=== PATIENT | female | born 1970 | race Caucasian/White ===

== ENCOUNTER 2021-10-23 06:50 | Outpatient (CLI) | payer SELFPAY ==
[2021-10-23 08:26] VITALS: PULSE 69; PULSE 75; PULSE 90; PULSE 91; PULSE 92; PULSE 94; PULSE 95; O2SAT 93; O2SAT 94; O2SAT 95; O2SAT 96; O2SAT 97; O2SAT 98; O2SAT 99
--- NOTE | 2021-10-24 09:56 | PFT ---
INTRODUCTION: The patient is a 50-year-old female that presents for pulmonary function studies secondary to a diagnosis of shortness of breath. Respiratory therapy reported good patient effort. Bronchodilators were used during testing. INTERPRETATION: Forced expiration spirometry demonstrates no evidence of a large airways obstructive ventilatory defect. There was a significant response to aerosolized bronchodilators noted. Spirograms are of good quality and plateau normally. Body plethysmography was performed and reveals lung volumes to be within normal limits. Diffusing capacity by single breath CO is also within normal limits. IMPRESSION: Subtle stigmata of small airways disease with significant bronchodilator response.
--- NOTE | 2021-10-24 10:05 | PCM.PSN.6M ---
PSN 6 Minute Walk Test 6 Minute Walk Test 6 Minute Walk Test: 6 Minute Walk Test PSN:6-Minute Walk Test Start: 10/23/21 07:30 Freq: Status: Active Protocol: [id number].[id number] Document 10/23/21 08:26 ROLANDO (Rec: 10/23/21 08:32 ROLANDO [id number]) 6 Minute Walk Test Date Performed 10/23/21 Time Performed 08:00 Height 5 ft 8 in Weight: 54.431 kg Weight in Pounds 120.[address]: Mateusz Bourne Assistive device used: None Pre-test Oxygen Delivery Method Room Air Pulse Ox (%) 97 Pulse Rate (60-100 beats/min) 75 Dyspnea Florencia Scale (0-10) 0 Exertion Florencia Scale (6-20) 6 1st minute Oxygen Delivery Method Room Air Pulse Ox (%) 97 Pulse Rate (60-100 beats/min) 90 2nd minute Oxygen Delivery Method Room Air Pulse Ox (%) 96 Pulse Rate (60-100 beats/min) 94 3rd minute Oxygen Delivery Method Room Air Pulse Ox (%) 95 Pulse Rate (60-100 beats/min) 95 4th minute Oxygen Delivery Method Room Air Pulse Ox (%) 94 Pulse Rate (60-100 beats/min) 92 5th minute Oxygen Delivery Method Room Air Pulse Ox (%) 93 Pulse Rate (60-100 beats/min) 92 6th minute Oxygen Delivery Method Room Air Pulse Ox (%) 98 Pulse Rate (60-100 beats/min) 91 Dyspnea Florencia Scale (0-10) 3 Exertion Florencia Scale (6-20) 12 Post-test Oxygen Delivery Method Room Air Pulse Ox (%) 99 Pulse Rate (60-100 beats/min) 69 Full Laps Walked 23 Partial Lap, Number of Tiles Walked 5 Total Distance Walked (ft) 1362 Interpretation Interpretation: The patient ambulated 1362 feet over the course of 6 minutes beginning on room air without assistive devices. Pretesting oxygen saturation was noted to be 97% on room air. With ambulation, the maria ines oxygen saturation was 93%. There was no significant exertional oxygen desaturation. Recommendations Recommendations: There is no indication for the use of supplemental oxygen at this time.
== END 2021-10-23 23:59 | disposition home or self-care (01) ==
PROVIDERS: Referring Provider Internal Medicine Critical Care Medicine; Visit Provider Internal Medicine Critical Care Medicine
DX: J98.4 Other disorders of lung (principal)
CPT/HCPCS: 94060; 94618; 94726; 94729

== ENCOUNTER → 2022-04-07 | Outpatient (CLI) | payer SELFPAY ==
--- NOTE | 2022-04-07 15:43 | CT_ITS ---
INDICATION: follow lung nodule EXAMINATION: CT CHEST WITHOUT CONTRAST - CT Chest W/O Contrast Injection TECHNIQUE: Helically acquired images were obtained of the chest. A radiation dose optimization technique was used for this scan. IV Contrast dosage and agent: None. COMPARISON: None. FINDINGS: LUNGS, PLEURA AND LARGE AIRWAYS: No evidence for acute infiltration. Tiny well-defined nodule in left lower lobe measuring approximately 5 x 4 mm possibly representing noncalcified granuloma.. No pleural effusion or thickening. No pneumothorax. THYROID: No thyroid lesions. HEART AND PERICARDIUM: Heart size is normal. No pericardial effusion. CORONARY ARTERIES: Coronary artery calcification VESSELS: Thoracic aorta is not dilated. MEDIASTINUM AND TIAGO: Tiny calcified left hilar node. Esophagus is unremarkable. No hiatal hernia. UPPER ABDOMEN: No acute pathology. BONES: Dorsal spine demonstrates degenerative changes No suspicious lytic or blastic abnormality. CT/Chest without Contrast IMPRESSION: Tiny noncalcified nodule in left lower lobe and calcified left hilar nodes possibly representing tiny calcified granuloma. Recommend correlation with prior studies when available and possible additional imaging utilizing FLEISCHNER Society criteria if clinically warranted Electronically Signed: Rod Valencia MD at 21:59 EDT ,
== END | disposition home or self-care (01) ==
LOC: CT 15:42
PROVIDERS: Referring Provider Nurse Practitioner Acute Care; Visit Provider Nurse Practitioner Acute Care
DX: R91.1 Solitary pulmonary nodule (principal)
CPT/HCPCS: 71250